=== PATIENT | male | born 1935 | race Two or more races ===

== ENCOUNTER 2020-07-13 11:08 | Inpatient (IN) | payer OTHER ==
[~2020-07-13] VITALS: Ht 182.9 cm; Wt 76.2 kg
[2020-07-13 11:08] VITALS: BP 129/84
--- NOTE | 2020-07-13 11:08 | NUR ---
EMERGENCY CONTACT: ARTEMIO LARSON-DAUGHTER
--- NOTE | 2020-07-13 11:08 | NUR ---
ED Nurse Note: Pt BIBJessica RA34 from home c/o generalized weakness x2 days. Per EMS, pt is getting confused and restless. AAOx1, verbally responsive, follows simple command. No SOB, on room air. Afebrile. Pt placed on monitoring manager. ERMD at bedside.
--- NOTE | 2020-07-13 11:25 | NUR ---
ED Nurse Note: IV line established. Blood and urine sent to lab.
[2020-07-13] MEDS ORDERED: LIPITOR80 MG ORAL (11:27)
[2020-07-13] MEDS ORDERED: ALLOPURINOL100 M1 ORAL (11:27)
[2020-07-13 11:41] LABS: BASOPHILS % (AUTO) 1.4 % (0.0-2.0); HEMATOCRIT 34.2 % (42.0-52.0); HEMOGLOBIN 11.1 G/DL (14.2-18.0); LYMPHOCYTES % (AUTO) 25.5 % (20.0-45.0); MEAN CORPUSCULAR VOLUME 86 FL (80-99); MONOCYTES % (AUTO) 10.7 % (1.0-10.0); NEUTROPHILS % (AUTO) 57.4 % (45.0-75.0); PLATELET COUNT 130 K/UL (150-450); RED BLOOD COUNT 3.98 M/UL (4.70-6.10); WHITE BLOOD COUNT 6.3 K/UL (4.8-10.8)
[2020-07-13 11:43] LABS: APPEARANCE,URINE SLIGHTLY CLOUDY; BILIRUBIN, URINE NEGATIVE (NEGATIVE); COLOR,URINE PALE YELLOW; GLUCOSE, URINE (UA) NEGATIVE (NEGATIVE); KETONES,URINE NEGATIVE (NEGATIVE); LEUKOCYTE ESTERASE ,URINE 3+ (NEGATIVE); NITRITE,URINE POSITIVE (NEGATIVE); PH,URINE 7 (4.5-8.0); PROTEIN,URINE NEGATIVE (NEGATIVE); UROBILINOGEN,URINE NORMAL MG/DL (0.0-1.0)
--- NOTE | 2020-07-13 11:43 | NUR ---
ED Nurse Note: Pt was taken to CT via regis, accompanied by a tech.
[2020-07-13 11:47] LABS: INR 1.1 (0.9-1.1)
[2020-07-13 11:55] LABS: CALCIUM 9.5 MG/DL (8.5-10.1); CREATININE 2.9 MG/DL (0.55-1.30); POTASSIUM 3.7 MMOL/L (3.5-5.1)
[2020-07-13] MEDS ORDERED: Thiamine HCl 100 MG in D5W 55 ML IVPB ONE (12:00)
[2020-07-13] MEDS ORDERED: cefTRIAXone 1 GM in NS 55 ML IVPB ONE (12:00)
--- NOTE | 2020-07-13 12:06 | Diagnostic Imaging Report ---
Indications: Altered mental status and weakness Technique: Spiral acquisitions obtained through the brain. Angled axial and coronal 5 x 5 mm slices were reconstructed. Total dose length product 1045 mGycm. CTDI vol(s) 53 mGy. Dose reduction achieved using automated exposure control Comparison: None. Findings: There is some image degradation due to motion artifact. There is age-related enlargement of the ventricles and extra-axial CSF spaces. There is considerable periventricular deep white matter low attenuation, consistent with chronic microvascular ischemic change. No acute intracranial hemorrhage or edema, mass effect, or midline shift. There is evidence of prior bilateral cataract surgery. The mastoids are clear. The sinuses are clear. The calvarium is intact. Impression: Chronic and age-related changes. Negative for acute intracranial bleed or mass effect The CT scanner at [facility] is accredited by the [employer] and the scans are performed using protocols designed to limit radiation exposure to as low as reasonably achievable to attain images of sufficient resolution adequate for diagnostic evaluation.
[2020-07-13 12:09] LABS: ALBUMIN 3.2 G/DL (3.4-5.0); ALBUMIN/GLOBULIN RATIO 0.8 (1.0-2.7); BILIRUBIN,TOTAL 0.5 MG/DL (0.2-1.0)
--- NOTE | 2020-07-13 12:20 | Emergency Room Report ---
History of Present Illness General Chief Complaint: Generalized Weakness Source: Patient, EMS Present Illness HPI Patient is an 84-year-old male who presents for increased altered mental status and generalized weakness. Onset of symptoms yesterday. History is obtained from the patient's daughter Daughter Rashmi Benites . Patient was brought in by EMS after increased generalized weakness. He is normally able to ambulate with a walker very short distances. Prior history of prostate cancer as well as Prior history of renal disease. Patient reportedly does not drink alcohol. Had no recent trauma known. Patient had been having diminished appetite. Reportedly his urine had looked discolored to his daughter who is his caregiver. Prior history of CVA. Allergies: Coded Allergies: No Known Allergies (Unverified , 07/13/20) COVID-19 Screening Contact w/high risk pt: No Experienced COVID-19 symptoms?: No COVID-19 Testing performed STONE LATHE OPERATOR: No Patient History Past Medical History: see triage record Reviewed Nursing Documentation: PMH: Agreed; PSxH: Agreed Nursing Documentation-PMH Hx Cardiac Problems: Yes Hx Hypertension: Yes Hx Neurological Problems: Yes - dementia Hx Cerebrovascular Accident: Yes Review of Systems All Other Systems: limited - Limited by poor historian Physical Exam Vital Signs Date Time Temp Pulse Resp B/P (MAP) Pulse Ox O2 Delivery O2 Flow Rate FiO2 07/13/20 11:03 97.3 95 18 129/84 (99) 99 Room Air General Appearance: Chronically Ill Head: atraumatic ENT: normal ENT inspection, hearing grossly normal, normal voice Neck: normal inspection, no bony tend, limited range of motion Respiratory: normal breath sounds, no respiratory distress, no retraction Cardiovascular #1: regular rate, rhythm, edema - Trace Gastrointestinal: normal inspection, normal bowel sounds, non tender, soft, no guarding, no hernia Genitourinary: no CVA tenderness Musculoskeletal: no lower extremity edema Neurologic: alert, motor weakness, responsive, other - Confused speech Psychiatric: normal inspection, mood/affect normal Skin: no rash Medical Decision Making Diagnostic Impression: Primary Impression: Altered mental status Additional Impressions: Urinary tract infection Encephalopathy Prostate cancer Renal insufficiency ER Course Patient presented for increased generalized weakness and confusion. Differential diagnosis include was not limited to urinary tract infection, electrolyte abnormality, CVA, intracranial hemorrhage, dehydration, among others. Because of complexity of patient's case laboratory tests and imaging studies were ordered. Patient was noted to have initial blood sugar approximately 120. He does have some prior history of previous CVA per patient's daughter. Patient does not have any known cardiac history. Patient is given IV thiamine and started on IV fluids as well as IV antibiotics. Patient had some minimal improvement in his alteration of mental status after IV hydration. Patient was given Rocephin. Apparently in the past patient has had similar episodes when he has a urinary infection. He is normally followed at the DC and the DC was contacted for possible transfer due to family member payton donaldson. They have no capacity currently for transfer. Dr. Chidi Warren was contacted for inpatient management due to panel physician and he agreed with admission. Labs Test 07/13/20 11:25 07/13/20 11:35 White Blood Count 6.3 K/UL (4.8-10.8) Red Blood Count 3.98 M/UL (4.70-6.10) Hemoglobin 11.1 G/DL (14.2-18.0) Hematocrit 34.2 % (42.0-52.0) Mean Corpuscular Volume 86 FL (80-99) Mean Corpuscular Hemoglobin 28.0 PG (27.0-31.0) Mean Corpuscular Hemoglobin Concent 32.5 G/DL (32.0-36.0) Red Cell Distribution Width 16.0 % (11.6-14.8) Platelet Count 130 K/UL (150-450) Mean Platelet Volume 9.3 FL (6.5-10.1) Neutrophils (%) (Auto) 57.4 % (45.0-75.0) Lymphocytes (%) (Auto) 25.5 % (20.0-45.0) Monocytes (%) (Auto) 10.7 % (1.0-10.0) Eosinophils (%) (Auto) 5.0 % (0.0-3.0) Basophils (%) (Auto) 1.4 % (0.0-2.0) Prothrombin Time 12.1 SEC (9.30-11.50) Prothromb Time International Ratio 1.1 (0.9-1.1) Activated Partial Thromboplast Time 25 SEC (23-33) Sodium Level 141 MMOL/L (136-145) Potassium Level 3.7 MMOL/L (3.5-5.1) Chloride Level 107 MMOL/L (98-107) Carbon Dioxide Level 27 MMOL/L (21-32) Anion Gap 7 mmol/L (5-15) Blood Urea Nitrogen 22 mg/dL (7-18) Creatinine 2.9 MG/DL (0.55-1.30) Estimat Glomerular Filtration Rate 20.8 mL/min (>60) Glucose Level 103 MG/DL (74-106) Calcium Level 9.5 MG/DL (8.5-10.1) Total Bilirubin 0.5 MG/DL (0.2-1.0) Aspartate Amino Transf (AST/SGOT) 42 U/L (15-37) Alanine Aminotransferase (ALT/SGPT) 17 U/L (12-78) Alkaline Phosphatase 106 U/L (46-116) Troponin I 0.048 ng/mL (0.000-0.056) Total Protein 7.4 G/DL (6.4-8.2) Albumin 3.2 G/DL (3.4-5.0) Globulin 4.2 g/dL Albumin/Globulin Ratio 0.8 (1.0-2.7) Thyroid Stimulating Hormone (TSH) 1.391 uiU/mL (0.358-3.740) Serum Alcohol < 3 mg/dL Urine Color Pale yellow Urine Appearance Slightly cloudy Urine pH 7 (4.5-8.0) Urine Specific [place] 1.005 (1.005-1.035) Urine Protein Negative (NEGATIVE) Urine Glucose (UA) Negative (NEGATIVE) Urine Ketones Negative (NEGATIVE) Urine Blood 2+ (NEGATIVE) Urine Nitrite Positive (NEGATIVE) Urine Bilirubin Negative (NEGATIVE) Urine Urobilinogen Normal MG/DL (0.0-1.0) Urine Leukocyte Esterase 3+ (NEGATIVE) Urine RBC 0-2 /HPF (0 - 0) Urine WBC 5-10 /HPF (0 - 0) Urine Squamous Epithelial Cells Occasional /LPF Urine Bacteria Moderate /HPF (NONE) Last Vital Signs Date Time Temp Pulse Resp B/P (MAP) Pulse Ox O2 Delivery O2 Flow Rate FiO2 07/13/20 11:08 97.3 95 18 129/84 99 Room Air Status: improved Disposition: ADMITTED INPATIENT Condition: Stable Cameron Farris MD Jul 13, 2020 12:20
--- NOTE | 2020-07-13 14:01 | NUR ---
ED Nurse Note: Xray at bedside.
[2020-07-13 14:22] VITALS: BP 142/83
--- NOTE | 2020-07-13 15:35 | NUR ---
ED Nurse Note: Pt awake, alert and oriented x1, follows simple command. No SOB, on room air. [place] provided for comfort. Urinal within reach. Will cont to monitor.
--- NOTE | 2020-07-13 16:47 | Diagnostic Imaging Report ---
Indication: Chest pain Technique: One view of the chest Comparison: none Findings: There is some atelectasis at the left lateral lung base. Lungs and pleural spaces are otherwise clear. The heart size is normal Impression: No acute process
--- NOTE | 2020-07-13 17:30 | NUR ---
ED Nurse Note: Pt seen sleeping in bed. No SOB, on room air. Safety and comfort provided. Will cont to monitor.
[2020-07-13 18:21] VITALS: BP 151/75
--- NOTE | 2020-07-13 19:04 | NUR ---
HAND-OFF: Report given to Andrew ROMAN.
--- NOTE | 2020-07-13 19:05 | NUR ---
ED Nurse Note: Recieved a pt asleep on the bed. pt has no sob, vitals are stable, afebrial and on room air. pt is waiting to get admitted.
--- NOTE | 2020-07-13 20:10 | NUR ---
TRANSFER TO FLOOR: Patient transferred to [facility] as ordered, per Dr webster . Report given to ABEL Tom. Belongings sent with the pt. LISA Chung and RN took the pt in stable condition
[2020-07-13 20:15] VITALS: BP 153/99
--- NOTE | 2020-07-13 20:15 | NUR ---
NURSE NOTES: Received pt from ED via delrney. Pt transferred to 203- without any incident. Pt is A/Ox1. [place] pt to room and unit. Received report from ABEL Morales. athletic monitor is in placed; pt is NSR. IV site intact, asymptomatic, and patent. Belongings list checked and signed. Bed is in the lowest position, locked, and alarmed. Call light and bedside table is within reach. No signs/symptoms of acute distress noted. Received admission orders from Dr. Warren. Will note and carry out.
[2020-07-13] MEDS: D5NS 1,000 ML IV SCH (20:32)
[2020-07-13] MEDS: Heparin 5000 units/ml inj SUBQ SCH (21:39)
[2020-07-14] VITALS: BP 156/97
[2020-07-14 04:00] VITALS: BP 152/93
--- NOTE | 2020-07-14 07:21 | NUR ---
NURSE HAND-OFF REPORT: Important Events on Shift: Admitted pt for AMS and UTI. Pt is A/Ox1. Patient Status: Stable Diet: Cardiac Pending Orders: N Pending Results/Labs: AM Labs Pending MD notification: N Latest Vital Signs: Temperature 97.7 , Pulse 64 , B/P 152 /93 , Respiratory Rate 16 , O2 SAT 99 , Room Air, O2 Flow Rate . EKG Rhythm: Sinus Rhythm Rhythm change?: N Latest [place] Fall Score: 50 Fall Risk: High Risk Safety Measures: Call light Within Reach, Bed Alarm Zone 1, Side Rails Side Rails x2, Bed position Low and Locked. Fall Precautions: Yellow Socks Yellow Gown Door Sign Patient Fall Education Report given to ABEL Lord.
[2020-07-14 08:00] VITALS: BP 135/81
[2020-07-14 08:06] LABS: ALBUMIN 2.8 G/DL (3.4-5.0); ALBUMIN/GLOBULIN RATIO 0.8 (1.0-2.7); BILIRUBIN,TOTAL 0.5 MG/DL (0.2-1.0); CALCIUM 8.7 MG/DL (8.5-10.1); CREATININE 2.4 MG/DL (0.55-1.30); POTASSIUM 4.4 MMOL/L (3.5-5.1)
--- NOTE | 2020-07-14 08:30 | NUR ---
NURSE NOTES: Received patient report from ABEL Tom. Patient is AOx 1 awake but does not answer questions readily. Patient shows no signs of distress or pain at the time. IV is intact and patent. There are no signs of erythema, infiltration, or bleeding. Patient is on room air and shows no signs of respiratory distress. Bed is in the lowest position, call light is within reach, side rails up x3. Will continue to monitor.
[2020-07-14] MEDS: D5NS 1,000 ML IV SCH ×2 (09:03→21:42)
[2020-07-14] MEDS: Heparin 5000 units/ml inj SUBQ SCH ×2 (09:04→20:37)
--- NOTE | 2020-07-14 10:15 | History and Physical Report ---
DATE OF ADMISSION: 07/13/2020 CHIEF COMPLAINT: Altered mental status. HISTORY OF PRESENT ILLNESS: The patient is an 84-year-old male. He has a history of hypertension, gout, prostate cancer, chronic kidney disease, presented with complaints of altered mental status. The patient is unable to provide any history. According to the patient's daughter, there have been no significant events recently. No falls. No fevers. No chills. No recent changes in medications. On evaluation in the emergency room, a head CT was negative. He appeared to have possibly UTI. He has been started on hydration and antibiotics. He has been admitted for further evaluation and care. PAST MEDICAL HISTORY: As above. PAST SURGICAL HISTORY: Unknown. CURRENT MEDICATIONS: Reconciled and reviewed. ALLERGIES: None. FAMILY HISTORY: None. SOCIAL HISTORY: There is no known history of tobacco, ethanol, or drugs. REVIEW OF SYSTEMS: From the patient is unobtainable. He is nonverbal. PHYSICAL EXAMINATION: VITAL SIGNS: Temperature 98, pulse 96, respirations 17, blood pressure . GENERAL: The patient is well-developed, no apparent distress. Awake, but poorly responsive. Does not follow commands. HEENT: Head, normocephalic, atraumatic. Sclerae anicteric. Oropharynx clear. NECK: Supple. HEART: Regular rate and rhythm. LUNGS: Clear. ABDOMEN: Soft. EXTREMITIES: Without clubbing, cyanosis, or edema. NEUROLOGIC: The patient is unable to comply with neurologic exam. LABORATORY DATA: White count 6, hemoglobin 11, platelets of 130. Sodium 141, potassium 3.7, BUN 22, creatinine 2.9. TSH was 1.3. Ammonia was 10. UA showed 5 to 10 wbc's. Urine culture grew out gram-negative rods. ASSESSMENT: This is an 84-year-old male, admitted with complaints of altered mental status, possibly secondary to UTI. PLAN: IV hydration. IV antibiotics. Follow up culture results. ID consultation. PT and OT evaluations will be obtained. Chidi Warren M.D. DR: DEVAN JOB#: [id number] CC:
[2020-07-14 12:00] VITALS: BP 142/83
[2020-07-14] MEDS: cefTRIAXone 1 GM in D5W 55 ML IVPB SCH (12:12)
[2020-07-14 16:00] VITALS: BP 148/84
--- NOTE | 2020-07-14 19:28 | NUR ---
NURSE HAND-OFF REPORT: Important Events on Shift:[NA] Patient Status: [Full code] Diet: [Cardiac Soft Easy Chew] Pending Orders: [] Pending Results/Labs:[] Pending MD notification:[] Latest Vital Signs: Temperature 98.2 , Pulse 88 , B/P 148 /84 , Respiratory Rate 20 , O2 SAT 98 , Room Air, O2 Flow Rate . Vital Sign Comment: [] EKG Rhythm: Sinus Rhythm Rhythm change?: N MD Notified?: - MD Response: Latest [place] Fall Score: 50 Fall Risk: High Risk Safety Measures: Call light Within Reach, Bed Alarm Zone 2, Side Rails Side Rails x3, Bed position Low and Locked. Fall Precautions: Yellow Socks Yellow Gown Patient Fall Education Report given to [ABEL Holbrook].
--- NOTE | 2020-07-14 19:29 | NUR ---
NURSE NOTES: Received report from ABEL Lord; pt noted laying in bed; comfortable; AOX1; room air; in no acute distress; denies any pain; With peripheral IV site noted on R upper arm 20 gauge; intact and patent; call light within reach; bed locked and in low position; side rails x 2-3; will continue to monitor.
[2020-07-14 20:00] VITALS: BP 140/94
[2020-07-15] VITALS (7 sets, daily range): BP systolic 140–155; BP diastolic 63–100
--- NOTE | 2020-07-15 07:10 | NUR ---
NURSE HAND-OFF REPORT: Important Events on Shift: N/A Patient Status: aox1, stable Diet: cardiac, soft easy to chew; 1:1 feeder Pending Orders: MRI head without contrast on 07/16 Pending Results/Labs: N Pending MD notification: N Latest Vital Signs: Temperature 98.6 , Pulse 99 , B/P 143 /100 , Respiratory Rate 16 , O2 SAT 99 , Room Air, O2 Flow Rate . Vital Sign Comment: stable EKG Rhythm: Sinus Rhythm Rhythm change?: N MD Notified?: N - MD Response: Latest [place] Fall Score: 50 Fall Risk: High Risk Safety Measures: Call light Within Reach, Bed Alarm Zone 1, Side Rails Side Rails x3, Bed position Low and Locked. Fall Precautions: Yellow Socks Yellow Gown Patient Fall Education Report given to ABEL Pettit.
--- NOTE | 2020-07-15 07:50 | NUR ---
NURSE NOTES: Received hand-off report from Sheron Segundo RN. Patient AOX1, able to state name, responsive to verbal and tactile stimuli. Breathing even and unlabored on room air. Bed alarm on, bed in lowest and locked position, call light within reach, global marketing specialist on. Yellow socks on. Bilateral extensive ecchymosis on arms noted. No other signs of bleeding at this time.
--- NOTE | 2020-07-15 09:11 | General Progress Note ---
Subjective ROS Limited/Unobtainable: No Constitutional: Reports: malaise, weakness HEENT: Reports: no symptoms Cardiovascular: Reports: no symptoms Respiratory: Reports: no symptoms Gastrointestinal/Abdominal: Reports: no symptoms Genitourinary: Reports: no symptoms Neurologic/Psychiatric: Reports: no symptoms Endocrine: Reports: no symptoms Hematologic/Lymphatic: Reports: no symptoms Allergies: Coded Allergies: No Known Allergies (Unverified , 07/13/20) All Systems: reviewed and negative except above Subjective much more alert. on iv abx and ivf. labs improving. Objective Last 24 Hour Vital Signs Date Time Temp Pulse Resp B/P (MAP) Pulse Ox O2 Delivery O2 Flow Rate FiO2 07/15/20 04:00 98.6 107 16 143/100 (114) 99 07/15/20 04:00 99 07/15/20 00:00 99.8 97 20 146/85 (105) 99 07/15/20 00:00 84 07/14/20 21:00 Room Air 07/14/20 20:00 95 07/14/20 20:00 100.0 103 20 140/94 (109) 98 07/14/20 16:00 98.2 88 20 148/84 (105) 98 07/14/20 16:00 88 07/14/20 12:00 98.8 84 20 142/83 (102) 98 07/14/20 12:00 82 Intake and Output 07/14/20 07/15/20 19:00 07:00 Intake Total 300 ml Balance 300 ml Other 300 ml # Voids 2 2 Height (Feet): 6 Height (Inches): 0.00 Weight (Pounds): 168 General Appearance: WD/WN, alert Cardiovascular: regular rhythm Respiratory/Chest: lungs clear Abdomen: normal bowel sounds, non tender, soft, no organomegaly Edema: no edema noted Leg (L), no edema noted Leg (R) Neurologic: alert, responsive Assessment/Plan Problem List: (1) Encephalopathy ICD Codes: G93.40 - Encephalopathy, unspecified SNOMED: 86369374, 278093707 (2) Urinary tract infection ICD Codes: N39.0 - Urinary tract infection, site not specified SNOMED: 76367725 (3) Renal insufficiency ICD Codes: N28.9 - Disorder of kidney and ureter, unspecified SNOMED: 637655364, 102137338 (4) Altered mental status ICD Codes: R41.82 - Altered mental status, unspecified SNOMED: 266855628, 798822616 (5) Prostate cancer ICD Codes: C61 - Malignant neoplasm of prostate SNOMED: 950645734, 880421313 Status: stable Assessment/Plan: ivf iv abx follow up cultures monitor renal fxn pt/ot Chidi Warren MD Jul 15, 2020 09:11
[2020-07-15] MEDS: Heparin 5000 units/ml inj SUBQ SCH ×2 (09:46→21:53)
[2020-07-15] MEDS: cefTRIAXone 1 GM in D5W 55 ML IVPB SCH (13:00)
[2020-07-15] MEDS: D5NS 1,000 ML IV SCH (13:01)
[2020-07-15] MEDS ORDERED: D5NS 1000ml IV ONE (14:04)
--- NOTE | 2020-07-15 18:45 | Consultation ---
DATE OF CONSULTATION: 07/15/2020 This consult is for coverage of Dr. Blackburn. PRIMARY ATTENDING PHYSICIAN: Chidi Warren M.D. REASON FOR CONSULT: UTI. HISTORY OF PRESENT ILLNESS: The patient is an 84-year-old male admitted on July 13, 2020 from home with altered mental status and generalized weakness. He has pyuria and suspected UTI. PAST MEDICAL HISTORY: Significant for prostatic cancer, hypertension, dementia, and chronic kidney disease. ALLERGIES: No known drug allergies. MEDICATIONS: Ceftriaxone, amlodipine, Protonix, heparin, Seroquel. SOCIAL HISTORY: Single. Has a daughter who is the next-of-kin. REVIEW OF SYSTEMS: Very limited. The patient is very, very slow to response. PHYSICAL EXAMINATION: VITAL SIGNS: Temperature 99, pulse is 105, blood pressure 145/91, maximum temperature was 100 last night. GENERAL APPEARANCE: No acute distress. Seems to have normal weight. HEAD AND NECK: [place] conjunctivae. HEART: Normal rate. LUNGS: Clear. ABDOMEN: Soft. GENITOURINARY: Has condom catheter. EXTREMITIES: No edema. SKIN: Has some skin bruises. LABORATORY AND DIAGNOSTIC DATA: WBC 6.3, hemoglobin 11.1, hematocrit 34.2, and platelets are 130. Sodium 143, potassium 4.4, chloride 110, bicarbonate 25, BUN 19, creatinine 2.4, glucose is 108. Albumin is 2.8. UA showed wbc's of 5-10, nitrite positive. Urine culture was positive for Providencia stuartii. COVID test was negative. Chest x-ray showed no acute process. CT scan of the head showed chronic and age-related changes. IMPRESSION: Pyuria, bacteriuria, UTI with Providencia, altered mental status, dementia, history of prostate cancer, hypertension, chronic kidney disease. RECOMMENDATIONS: Continue with ceftriaxone. At the end of my exam, I thank Dr. Warren for involving me in the care of this patient. Manuel Davis M.D. DR: SHANEL JOB#: [id number] CC:
--- NOTE | 2020-07-15 19:15 | NUR ---
NURSE HAND-OFF REPORT: Important Events on Shift: AMS, alert and oriented x1-2, responsive to verbal and tactile stimuli Patient Status: stable condition, vitals WNL, full code Diet: [] Pending Orders: [] Pending Results/Labs:[] Pending MD notification:[] Latest Vital Signs: Temperature 97.0 , Pulse 100 , B/P 151 /99 , Respiratory Rate 18 , O2 SAT 98 , Room Air, O2 Flow Rate . Vital Sign Comment: [] EKG Rhythm: Sinus Rhythm Rhythm change?: N MD Notified?: N - MD Response: Latest [place] Fall Score: 50 Fall Risk: High Risk Safety Measures: Call light Within Reach, Bed Alarm Zone 1, Side Rails Side Rails x3, Bed position Low and Locked. Fall Precautions: Yellow Socks Yellow Gown Door Sign Patient Fall Education Report given to ABEL Rodriguez.
--- NOTE | 2020-07-15 19:30 | NUR ---
NURSE NOTES: Receive a report from ABEL Jim. Round is made. Pt is awake, orientation 1-2. No acute distress noted. Denies pain. On bed boud d/t general weakness. Breathing is even and non labored. Noted intermittent cough. IV is running as ordered via right upper arm. Yellow urine is patent via condom catheter. On bed alarm. Call light within reach. Will continue to monitor.
--- NOTE | 2020-07-15 21:30 | NUR ---
NURSE NOTES: Trying to get out of bed. Given orientation and calm him down. Readjust bed and position. Will continue to monitor closely.
[2020-07-16] VITALS: BP 141/93
[2020-07-16] MEDS: D5NS 1,000 ML IV SCH (01:34)
[2020-07-16 04:00] VITALS: BP 122/77
--- NOTE | 2020-07-16 04:14 | NUR ---
NURSE NOTES: Called and left a mesage regarding patient's rhythm: ST (110-130s per truck driver's offsider). Patient asleep and not in acute distress. Awaiting call back. Will continue to monitor.
--- NOTE | 2020-07-16 04:46 | Cardiology Progress Note ---
Subjective DATE OF SERVICE: Jul 15, 2020 Remains withdrawn No SOB. Monitor: sinus with frequent sinus tachycardia Objective Last 24 Hour Vital Signs Date Time Temp Pulse Resp B/P (MAP) Pulse Ox O2 Delivery O2 Flow Rate FiO2 07/16/20 00:00 120 07/16/20 00:00 97.7 114 18 141/93 (109) 97 07/15/20 21:00 Room Air 07/15/20 20:00 111 07/15/20 20:00 98.1 117 18 144/84 (104) 98 07/15/20 18:34 100 151/99 07/15/20 16:00 98 07/15/20 16:00 97.0 100 18 151/99 (116) 98 07/15/20 12:00 84 07/15/20 12:00 98.5 99 16 155/63 (93) 99 07/15/20 09:44 105 145/91 07/15/20 09:00 99.0 101 18 140/76 (97) 98 07/15/20 09:00 Room Air 07/15/20 08:00 99.3 105 20 145/91 (109) 99 07/15/20 08:00 96 HEENT: normal ENT inspection LUNGS: diminished breath sounds CARDIAC: regular rhythm, normal S1 and S2, tachycardia ABDOMEN: normal bowel sounds, non tender, soft, no organomegaly EXTREMITIES: normal range of motion, No edema, other - Neuro: uncooperative, but moves all extremities. no asterixis Microbiology Date/Time Source Procedure Growth Status 07/13/20 12:55 Nasopharynx SARS-CoV-2 RdRp Gene Assay - Final Complete 07/13/20 11:35 Urine,Clean Catch Urine Culture - Final Providencia Stuartii Complete Assessment/Plan Assessment/Plan Toxic and metabolic encephalopathies Proteus UTI with sepsis Sinus tachycardia Hypovolemia/dehydration Hypertension/HHD with labile BP Chronic diastolic CHF Euthyroid IVF Antimicrobials Metabolic profile DVT prophyl Check venous duplex Titrate antiHTN regimen Troy Feliz MD Jul 16, 2020 04:46
--- NOTE | 2020-07-16 05:00 | NUR ---
NURSE NOTES: Pt remains asymptomatic-no SALMERON/ no dizziness, no palpitation noted. Receive new orders from Dr. Feliz. Will continue to follow up.
[2020-07-16 07:20] LABS: EOSINOPHILS % (AUTO) 4.7 % (0.0-3.0); HEMATOCRIT 32.8 % (42.0-52.0); HEMOGLOBIN 10.8 G/DL (14.2-18.0); LYMPHOCYTES % (AUTO) 28.1 % (20.0-45.0); MEAN CORPUSCULAR VOLUME 86 FL (80-99); NEUTROPHILS % (AUTO) 55.3 % (45.0-75.0); PLATELET COUNT 102 K/UL (150-450); RED BLOOD COUNT 3.81 M/UL (4.70-6.10); RED CELL DISTRIBUTION WIDTH 15.9 % (11.6-14.8); WHITE BLOOD COUNT 5.3 K/UL (4.8-10.8)
--- NOTE | 2020-07-16 07:30 | NUR ---
NURSE HAND-OFF REPORT: Important Events on Shift:ST without symptoms as 110-120 bmp. Receive new orders. Patient Status: [stable] Diet: [cardiac diet] Pending Orders: [] Pending Results/Labs:[] Pending MD notification:[] Latest Vital Signs: Temperature 98.8 , Pulse 118 , B/P 122 /77 , Respiratory Rate 18 , O2 SAT 98 , Room Air, O2 Flow Rate . Vital Sign Comment: [] EKG Rhythm: Sinus Tachycardia Rhythm change?: N MD Notified?: N - MD Response: Latest [place] Fall Score: 70 Fall Risk: High Risk Safety Measures: Call light Within Reach, Bed Alarm Zone 1, Side Rails Side Rails x3, Bed position Low and Locked. Fall Precautions: Yellow Socks Yellow Gown Door Sign Patient Fall Education Report given to ABEL Lord. Round is made. Update to Dr. Warren for pt's ST and new orders.
[2020-07-16 07:41] LABS: ALANINE AMINOTRANSFERASE 17 U/L (12-78); ALBUMIN 2.7 G/DL (3.4-5.0); ALBUMIN/GLOBULIN RATIO 0.7 (1.0-2.7); ALKALINE PHOSPHATASE 86 U/L (46-116); ANION GAP 8 mmol/L (5-15); ASPARTATE AMINO TRANSFERASE 34 U/L (15-37); BILIRUBIN,TOTAL 0.4 MG/DL (0.2-1.0); BLOOD UREA NITROGEN 10 mg/dL (7-18); CALCIUM 8.7 MG/DL (8.5-10.1); CARBON DIOXIDE 25 MMOL/L (21-32); CHLORIDE 111 MMOL/L (98-107); CHOLESTEROL 103 MG/DL (< 200); CREATININE 2.3 MG/DL (0.55-1.30); HDL CHOLESTEROL 52 MG/DL (40-60); POTASSIUM 3.5 MMOL/L (3.5-5.1); SODIUM 144 MMOL/L (136-145); TRIGLYCERIDES 61 MG/DL (30-150)
--- NOTE | 2020-07-16 07:47 | NUR ---
NURSE NOTES: Received patient report from ABEL Polo. Patient shows no signs of distress or pain at the time. Patient is AO x1 awake and able to make needs known but confused. IV is intact and patent. There are no signs of erythema, infiltration, or bleeding. Patient is on room air and shows no signs of respiratory distress at the time. Bed is in the lowest position, call light is within reach, side rails up x3. Will continue to monitor. Dr. Warren informed of tachycardia or 120s at night. No new orders given.
[2020-07-16 08:00] VITALS: BP 156/78
[2020-07-16 08:06] LABS: CREATINE KINASE 186 U/L (26-308)
--- NOTE | 2020-07-16 08:20 | NUR ---
CASE MANAGEMENT:REVIEW BIBA FROM HOME CC: WEAKNESS X2 DAYS. CONFUSED AND RESTLESSNESS NOTED IN ER PMH: PROSTATE CA SI: ENCEPHALOPATHY.UTI. RENAL INSUFF 97.4 95 18 129/84 99% ON RA BUN+22 CR+2.9 IS: IV ROCEPHIN 500CC NS BOLUS CT HEAD IV THIAMINE : TO TELEMETRY DCP: FROM HOME NO AVAILABLE BEDS AT [facility]
[2020-07-16] MEDS: Heparin 5000 units/ml inj SUBQ SCH ×2 (08:38→20:25)
--- NOTE | 2020-07-16 10:15 | NUR ---
NURSE NOTES: Dr. Warren gave order to cancel MRI of brain.
--- NOTE | 2020-07-16 11:39 | Infectious Diseases Prog Note ---
Assessment/Plan Assessment/Plan antibiotics : ceftriaxone A 1. providencia UTI 2. renal failure improving 3. hypertension 4. prostate cancer 5. dementia P 1. continue ceftriaxone 3 more days 2. will follow up cultures Subjective ROS Limited/Unobtainable: Yes Allergies: Coded Allergies: No Known Allergies (Unverified , 07/13/20) Objective Last 24 Hour Vital Signs Date Time Temp Pulse Resp B/P (MAP) Pulse Ox O2 Delivery O2 Flow Rate FiO2 07/16/20 09:00 Room Air 07/16/20 08:38 113 156/78 07/16/20 08:37 113 156/78 07/16/20 08:00 97.9 113 20 156/78 (104) 96 07/16/20 04:00 118 07/16/20 04:00 98.8 117 18 122/77 (92) 98 07/16/20 00:00 120 07/16/20 00:00 97.7 114 18 141/93 (109) 97 07/15/20 21:00 Room Air 07/15/20 20:00 111 07/15/20 20:00 98.1 117 18 144/84 (104) 98 07/15/20 18:34 100 151/99 07/15/20 16:00 98 07/15/20 16:00 97.0 100 18 151/99 (116) 98 07/15/20 12:00 84 07/15/20 12:00 98.5 99 16 155/63 (93) 99 Height (Feet): 6 Height (Inches): 0.00 Weight (Pounds): 168 Respiratory/Chest: lungs clear Cardiovascular: normal rate, regular rhythm, no gallop/murmur Abdomen: soft, non tender Extremities: no edema Microbiology Date/Time Source Procedure Growth Status 07/13/20 12:55 Nasopharynx SARS-CoV-2 RdRp Gene Assay - Final Complete Laboratory Tests Test 07/16/20 05:35 White Blood Count 5.3 K/UL (4.8-10.8) Red Blood Count 3.81 M/UL (4.70-6.10) L Hemoglobin 10.8 G/DL (14.2-18.0) L Hematocrit 32.8 % (42.0-52.0) L Mean Corpuscular Volume 86 FL (80-99) Mean Corpuscular Hemoglobin 28.4 PG (27.0-31.0) Mean Corpuscular Hemoglobin Concent 32.9 G/DL (32.0-36.0) Red Cell Distribution Width 15.9 % (11.6-14.8) H Platelet Count 102 K/UL (150-450) L Mean Platelet Volume 9.3 FL (6.5-10.1) Neutrophils (%) (Auto) 55.3 % (45.0-75.0) Lymphocytes (%) (Auto) 28.1 % (20.0-45.0) Monocytes (%) (Auto) 11.0 % (1.0-10.0) H Eosinophils (%) (Auto) 4.7 % (0.0-3.0) H Basophils (%) (Auto) 1.0 % (0.0-2.0) Sodium Level 144 MMOL/L (136-145) Potassium Level 3.5 MMOL/L (3.5-5.1) Chloride Level 111 MMOL/L (98-107) H Carbon Dioxide Level 25 MMOL/L (21-32) Anion Gap 8 mmol/L (5-15) Blood Urea Nitrogen 10 mg/dL (7-18) Creatinine 2.3 MG/DL (0.55-1.30) H Estimat Glomerular Filtration Rate 27.2 mL/min (>60) Glucose Level 125 MG/DL (74-106) H Uric Acid 6.0 MG/DL (2.6-7.2) Calcium Level 8.7 MG/DL (8.5-10.1) Magnesium Level 1.6 MG/DL (1.8-2.4) L Total Bilirubin 0.4 MG/DL (0.2-1.0) Aspartate Amino Transf (AST/SGOT) 34 U/L (15-37) Alanine Aminotransferase (ALT/SGPT) 17 U/L (12-78) Alkaline Phosphatase 86 U/L (46-116) Total Creatine Kinase 186 U/L (26-308) Troponin I 0.073 ng/mL (0.000-0.056) Pro-B-Type Natriuretic Peptide Pending Total Protein 6.5 G/DL (6.4-8.2) Albumin 2.7 G/DL (3.4-5.0) L Globulin 3.8 g/dL Albumin/Globulin Ratio 0.7 (1.0-2.7) L Triglycerides Level 61 MG/DL (30-150) Cholesterol Level 103 MG/DL (< 200) LDL Cholesterol 41 mg/dL (<100) HDL Cholesterol 52 MG/DL (40-60) Cholesterol/HDL Ratio 2.0 (3.3-4.4) L Vitamin B12 Level 935 PG/ML (193-986) Folate 16.2 NG/ML (8.6-58.9) Current Medications Medications (Trade) Dose Ordered Sig/Kaylin Route PRN Reason Start Time Stop Time Status Last Admin Dose Admin Amlodipine Besylate (Norvasc) 5 mg BID ORAL 07/15/20 10:00 08/14/20 09:59 07/16/20 08:37 Ceftriaxone Sodium 1 gm/ Dextrose 55 ml @ 110 mls/hr Q24H IVPB 07/14/20 12:00 07/21/20 11:59 07/15/20 13:00 Dextrose/Sodium Chloride 1,000 ml @ 75 mls/hr [id number] IV 07/13/20 20:00 08/12/20 19:59 07/16/20 01:34 Heparin Sodium (Porcine) (Heparin 5000 units/ml) 5,000 units EVERY 12 HOURS SUBQ 07/13/20 21:00 08/27/20 20:59 07/15/20 21:53 Metoprolol Tartrate (Lopressor) 25 mg Q12HR ORAL 07/16/20 09:00 10/14/20 08:59 07/16/20 08:38 Pantoprazole (Protonix) 40 mg DAILY ORAL 07/14/20 09:00 08/13/20 08:59 07/16/20 08:37 Quetiapine Fumarate (SEROqueL) 25 mg TIDPRN PRN ORAL Agitation 07/13/20 19:45 08/27/20 19:44 Caity Blackburn MD Jul 16, 2020 11:39
[2020-07-16 12:00] VITALS: BP 144/73
--- NOTE | 2020-07-16 12:19 | General Progress Note ---
Subjective ROS Limited/Unobtainable: No Constitutional: Reports: malaise, weakness HEENT: Reports: no symptoms Cardiovascular: Reports: no symptoms Respiratory: Reports: no symptoms Gastrointestinal/Abdominal: Reports: no symptoms Genitourinary: Reports: no symptoms Neurologic/Psychiatric: Reports: pre-existing deficit Endocrine: Reports: no symptoms Hematologic/Lymphatic: Reports: no symptoms Allergies: Coded Allergies: No Known Allergies (Unverified , 07/13/20) All Systems: reviewed and negative except above Subjective much more alert. on iv abx and ivf. labs improving. ID appreciated Objective Last 24 Hour Vital Signs Date Time Temp Pulse Resp B/P (MAP) Pulse Ox O2 Delivery O2 Flow Rate FiO2 07/16/20 09:00 Room Air 07/16/20 08:38 113 156/78 07/16/20 08:37 113 156/78 07/16/20 08:00 97.9 113 20 156/78 (104) 96 07/16/20 04:00 118 07/16/20 04:00 98.8 117 18 122/77 (92) 98 07/16/20 00:00 120 07/16/20 00:00 97.7 114 18 141/93 (109) 97 07/15/20 21:00 Room Air 07/15/20 20:00 111 07/15/20 20:00 98.1 117 18 144/84 (104) 98 07/15/20 18:34 100 151/99 07/15/20 16:00 98 07/15/20 16:00 97.0 100 18 151/99 (116) 98 Intake and Output 07/15/20 07/16/20 19:00 07:00 Intake Total 300 ml 250 ml Output Total 700 ml Balance 300 ml -450 ml Intake Oral 300 ml 250 ml Output Urine Total 700 ml Laboratory Tests 07/16/20 05:35: White Blood Count 5.3, Red Blood Count 3.81L, Hemoglobin 10.8L, Hematocrit 32.8L , Mean Corpuscular Volume 86, Mean Corpuscular Hemoglobin 28.4, Mean Corpuscular Hemoglobin Concent 32.9, Red Cell Distribution Width 15.9H, Platelet Count 102L, Mean Platelet Volume 9.3, Neutrophils (%) (Auto) 55.3, Lymphocytes (%) (Auto) 28.1, Monocytes (%) (Auto) 11.0H, Eosinophils (%) (Auto) 4.7H, Basophils (%) (Auto) 1.0, Sodium Level 144, Potassium Level 3.5, Chloride Level 111H, Carbon Dioxide Level 25, Anion Gap 8, Blood Urea Nitrogen 10, Creatinine 2.3H, Estimat Glomerular Filtration Rate 27.2, Glucose Level 125H, Uric Acid 6.0, Calcium Level 8.7, Magnesium Level 1.6L, Total Bilirubin 0.4, Aspartate Amino Transf (AST/SGOT) 34, Alanine Aminotransferase (ALT/SGPT) 17, Alkaline Phosphatase 86, Total Creatine Kinase 186, Troponin I 0.073H, Pro-B-Type Natriuretic Peptide [Pending], Total Protein 6.5, Albumin 2.7L, Globulin 3.8, Albumin/Globulin Ratio 0.7L, Triglycerides Level 61, Cholesterol Level 103, LDL Cholesterol 41, HDL C holesterol 52, Cholesterol/HDL Ratio 2.0L, Vitamin B12 Level 935, Folate 16.2 Height (Feet): 6 Height (Inches): 0.00 Weight (Pounds): 168 General Appearance: WD/WN, alert, confused Neck: supple Cardiovascular: regular rhythm Respiratory/Chest: normal breath sounds Abdomen: normal bowel sounds, non tender, soft, no organomegaly 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, alert, responsive Assessment/Plan Problem List: (1) Encephalopathy ICD Codes: G93.40 - Encephalopathy, unspecified SNOMED: 92764842, 574586285 (2) Urinary tract infection ICD Codes: N39.0 - Urinary tract infection, site not specified SNOMED: 79432813 (3) Renal insufficiency ICD Codes: N28.9 - Disorder of kidney and ureter, unspecified SNOMED: 109540190, 110307108 (4) Altered mental status ICD Codes: R41.82 - Altered mental status, unspecified SNOMED: 181370289, 952506706 (5) Prostate cancer ICD Codes: C61 - Malignant neoplasm of prostate SNOMED: 660351982, 938687958 Status: stable Assessment/Plan: ivf as needed iv abx follow up cultures monitor renal fxn pt/ot eval dc planning Chidi Warren MD Jul 16, 2020 12:19
[2020-07-16] MEDS: cefTRIAXone 1 GM in D5W 55 ML IVPB SCH (12:22)
--- NOTE | 2020-07-16 12:52 | Cardiology Progress Note ---
Subjective DATE OF SERVICE: Jul 16, 2020 More alert No SOB. Monitor: sinus with frequent sinus tachycardia Objective Last 24 Hour Vital Signs Date Time Temp Pulse Resp B/P (MAP) Pulse Ox O2 Delivery O2 Flow Rate FiO2 07/16/20 09:00 Room Air 07/16/20 08:38 113 156/78 07/16/20 08:37 113 156/78 07/16/20 08:00 97.9 113 20 156/78 (104) 96 07/16/20 04:00 118 07/16/20 04:00 98.8 117 18 122/77 (92) 98 07/16/20 00:00 120 07/16/20 00:00 97.7 114 18 141/93 (109) 97 07/15/20 21:00 Room Air 07/15/20 20:00 111 07/15/20 20:00 98.1 117 18 144/84 (104) 98 07/15/20 18:34 100 151/99 07/15/20 16:00 98 07/15/20 16:00 97.0 100 18 151/99 (116) 98 HEENT: normal ENT inspection LUNGS: diminished breath sounds CARDIAC: regular rhythm, normal S1 and S2, tachycardia ABDOMEN: normal bowel sounds, non tender, soft, no organomegaly EXTREMITIES: normal range of motion, No edema, other - Neuro: uncooperative, but moves all extremities. no asterixis Laboratory Tests Test 07/16/20 05:35 White Blood Count 5.3 K/UL (4.8-10.8) Red Blood Count 3.81 M/UL (4.70-6.10) L Hemoglobin 10.8 G/DL (14.2-18.0) L Hematocrit 32.8 % (42.0-52.0) L Mean Corpuscular Volume 86 FL (80-99) Mean Corpuscular Hemoglobin 28.4 PG (27.0-31.0) Mean Corpuscular Hemoglobin Concent 32.9 G/DL (32.0-36.0) Red Cell Distribution Width 15.9 % (11.6-14.8) H Platelet Count 102 K/UL (150-450) L Mean Platelet Volume 9.3 FL (6.5-10.1) Neutrophils (%) (Auto) 55.3 % (45.0-75.0) Lymphocytes (%) (Auto) 28.1 % (20.0-45.0) Monocytes (%) (Auto) 11.0 % (1.0-10.0) H Eosinophils (%) (Auto) 4.7 % (0.0-3.0) H Basophils (%) (Auto) 1.0 % (0.0-2.0) Sodium Level 144 MMOL/L (136-145) Potassium Level 3.5 MMOL/L (3.5-5.1) Chloride Level 111 MMOL/L (98-107) H Carbon Dioxide Level 25 MMOL/L (21-32) Anion Gap 8 mmol/L (5-15) Blood Urea Nitrogen 10 mg/dL (7-18) Creatinine 2.3 MG/DL (0.55-1.30) H Estimat Glomerular Filtration Rate 27.2 mL/min (>60) Glucose Level 125 MG/DL (74-106) H Uric Acid 6.0 MG/DL (2.6-7.2) Calcium Level 8.7 MG/DL (8.5-10.1) Magnesium Level 1.6 MG/DL (1.8-2.4) L Total Bilirubin 0.4 MG/DL (0.2-1.0) Aspartate Amino Transf (AST/SGOT) 34 U/L (15-37) Alanine Aminotransferase (ALT/SGPT) 17 U/L (12-78) Alkaline Phosphatase 86 U/L (46-116) Total Creatine Kinase 186 U/L (26-308) Troponin I 0.073 ng/mL (0.000-0.056) Pro-B-Type Natriuretic Peptide Pending Total Protein 6.5 G/DL (6.4-8.2) Albumin 2.7 G/DL (3.4-5.0) L Globulin 3.8 g/dL Albumin/Globulin Ratio 0.7 (1.0-2.7) L Triglycerides Level 61 MG/DL (30-150) Cholesterol Level 103 MG/DL (< 200) LDL Cholesterol 41 mg/dL (<100) HDL Cholesterol 52 MG/DL (40-60) Cholesterol/HDL Ratio 2.0 (3.3-4.4) L Vitamin B12 Level 935 PG/ML (193-986) Folate 16.2 NG/ML (8.6-58.9) Microbiology Date/Time Source Procedure Growth Status 07/13/20 12:55 Nasopharynx SARS-CoV-2 RdRp Gene Assay - Final Complete Assessment/Plan Assessment/Plan Toxic and metabolic encephalopathies Proteus UTI with sepsis Sinus tachycardia Hypovolemia/dehydration Hypertension/HHD with labile BP Chronic diastolic CHF Euthyroid Acute myocardial ischemia Low range lipid parameters on high dose statin as outpatient IVF adjusted Antimicrobials Metabolic profile DVT prophyl Await venous duplex Titrate antiHTN regimen Resume low dose statin upon discharge Continue beta nikkie and aspirin Troy Feliz MD Jul 16, 2020 12:52
--- NOTE | 2020-07-16 13:33 | Diagnostic Imaging Report ---
Indication: Bilateral lower extremity pain and edema Technique: Grayscale and duplex images of the bilateral lower extremity veins Comparison: None Findings: Bilaterally, grayscale and duplex images demonstrate no evidence of intraluminal thrombus. Normal phasic Doppler waveforms, demonstrating normal augmentation response and no evidence of valvular insufficiency. Greater saphenous vein(s) and tibial veins are patent. Normal compressibility. Impression: Negative for evidence of lower extremity deep venous thrombosis bilaterally
--- NOTE | 2020-07-16 13:47 | NUR ---
P.T Note: P.T evaluation completed and tx initiated. Please refer to P.T evaluation for full report.
--- NOTE | 2020-07-16 13:48 | NUR ---
TRANSFER UPDATE PATIENT IS 100% [facility] SPOKE WITH PATIENT'S DAUGHTER , ATREMIO, WHO STATED SHE WANTED HER FATHER TRANSFERRED. SHE ALSO MENTIONED THEY TRIED TO TRANSFER FROM THE ER BUT THERE WEREN'T ANY [facility] BEDS AVAILABLE AT THAT TIME.. SPOKE WITH ANGELICA AT [facility]...SHE IS WORKING ON A BED ANGELICA T: [phone] [id number] EFAX: [phone]
[2020-07-16] MEDS: 1/2NS w/KCl 20mEq 1000ml 1,000 ML IV SCH (13:55)
--- NOTE | 2020-07-16 13:58 | NUR ---
INSURANCE ALL CLINICALS FA[facility] TO [facility] [phone]
--- NOTE | 2020-07-16 15:30 | Consultation ---
DATE OF CONSULTATION: 07/14/2020 CARDIOLOGY CONSULTATION CONSULTING PHYSICIAN: Troy Feliz MD REASON FOR CONSULTATION: Altered mentation with elevated cardiac enzymes. HISTORY OF PRESENT ILLNESS: This 84-year-old male with multiple medical problems presented to the emergency room with altered mentation according to his daughter. He has been withdrawn and lethargic and eating poorly. He has not had any fevers, chills, or any respiratory symptoms. He has not had any nausea, vomiting, or diarrhea either. PAST MEDICAL HISTORY: Includes hyperlipidemia, hyperuricemia, history of gout, hypertension, history of prostate cancer, chronic kidney disease, cerebrovascular disease, history of CVA. ALLERGIES: None. MEDICATIONS: Reviewed. FAMILY HISTORY: Noncontributory. SOCIAL HISTORY: No history of smoking, alcohol, or substance abuse. REVIEW OF SYSTEMS: Not obtainable from patient. Pertinent data available as noted above from daughter's report. PHYSICAL EXAMINATION: VITAL SIGNS: In the emergency room afebrile, blood pressure 129/84, heart rate 95, respirations 18, oxygen saturation on room air 99%. HEENT: Conjunctivae pink. Oropharynx clear with dry mucous membranes. NECK: Supple. Jugular venous pressure normal. LUNGS: Diminished breath sounds. No wheezes or rales. ABDOMEN: Soft, nontender. No guarding or rebound. No CVA tenderness. CARDIAC: Regular rhythm and rate. Normal S1, S2 with a fourth heart sound. A 1/6 systolic murmur at base. EXTREMITIES: No clubbing, cyanosis. Decreased capillary refill. No edema. NEUROLOGIC: Confusion with decreased cognition. He moves all extremities. LABORATORY DATA: White count 6.3, hemoglobin 11.1. BUN 22, creatinine 2.9, potassium 3.7, sodium 141, bicarb is 27. TSH 1.4. Urinalysis with 5 to 10 white cells and moderate bacteria. Troponin is 0.048. IMPRESSION: 1. Encephalopathy, likely toxic and metabolic. 2. Urinary tract infection with possible early sepsis. 3. Paroxysmal sinus tachycardia. 4. History of hypertension. 5. Hypovolemia and dehydration. PLAN: 1. Antimicrobials per primary care physician. 2. IV fluid hydration. 3. DVT prophylaxis. 4. Hold antihypertensives. 5. Hold statin drugs. 6. Follow up cardiac enzymes. 7. Continuous cardiac monitoring. Troy Joyce Feliz DR: SON JOB#: [id number] CC:
[2020-07-16 16:00] VITALS: BP 143/88
--- NOTE | 2020-07-16 19:34 | NUR ---
NURSE HAND-OFF REPORT: Important Events on Shift:[Patient removed IV. ] Patient Status: [Full code] Diet: [Cardiac] Pending Orders: [] Pending Results/Labs:[] Pending MD notification:[] Latest Vital Signs: Temperature 97.9 , Pulse 98 , B/P 143 /88 , Respiratory Rate 20 , O2 SAT 98 , Room Air, O2 Flow Rate . Vital Sign Comment: [] EKG Rhythm: Sinus Rhythm Rhythm change?: N MD Notified?: N - MD Response: Latest Carlisle Fall Score: 70 Fall Risk: High Risk Safety Measures: Call light Within Reach, Bed Alarm Zone 1, Side Rails Side Rails x3, Bed position Low and Locked. Fall Precautions: Yellow Socks Yellow Gown Door Sign Patient Fall Education Report given to [ABEL Williamson].
--- NOTE | 2020-07-16 19:39 | NUR ---
NURSE NOTES: Pt received from ABEL Lord alert and oriented x1 to name only with no acute s/s of distress noted. On room air. No IV noted on patient, per AM nurse pt pulled out IV, will attempt to insert new IV. Bed alarm on, bed in lowest position. Fall precautions educated to patient, pt requires further education and teaching as patient is confused. Call light within reach.
[2020-07-16 20:00] VITALS: BP 146/81
[2020-07-17] VITALS: BP 142/84
[2020-07-17] MEDS: 1/2NS w/KCl 20mEq 1000ml 1,000 ML IV SCH (03:20)
--- NOTE | 2020-07-17 03:45 | NUR ---
NURSE NOTES: RN and staff have been unable to insert IV line for pt d/t pt being a hard stick. Will continue to attempt to insert new IV.
[2020-07-17 04:00] VITALS: BP 143/86
--- NOTE | 2020-07-17 06:20 | NUR ---
NURSE NOTES: RN reported to Dr. Warren that staff have been unable to insert new IV for patient. Per Dr. Warren, "discontinue maintenance IV fluids - 1/2 NS with 20 KCl at 75 and change Rocephin 1gm to IM to continue antibiotic therapy" Will follow through with orders accordingly.
--- NOTE | 2020-07-17 07:39 | NUR ---
NURSE HAND-OFF REPORT: Important Events on Shift: Pt pulled out IV line in the previous shift, unable to insert new IV line d/t patient being a hard stick. Rocephin IVPB changed to IM, IVF discontinued. Patient Status: Ongoing Diet: Cardiac, SEC Pending Orders: n/a Pending Results/Labs: n/a Pending MD notification: n/a Latest Vital Signs: Temperature 97.9 , Pulse 67 , B/P 143 /86 , Respiratory Rate 20 , O2 SAT 98 , Room Air, O2 Flow Rate . Vital Sign Comment: WNL EKG Rhythm: Sinus Rhythm Rhythm change?: N MD Notified?: N - MD Response: Latest Carlisle Fall Score: 70 Fall Risk: High Risk Safety Measures: Call light Within Reach, Bed Alarm Zone 1, Side Rails Side Rails x3, Bed position Low and Locked. Fall Precautions: Yes Yellow Socks Yellow Gown Door Sign Patient Fall Education Report given to ABEL Velazquez.
--- NOTE | 2020-07-17 07:40 | NUR ---
NURSE NOTES: pt. is in bed and asleep. pt is on school lunch monitor showing no signs of cardiac or respiratory distress. bed is locked and in lowest position, call light is within reach.
[2020-07-17 08:00] VITALS: BP_SYST 129; BP_SYST 136; BP_DIAS 69; BP_DIAS 84
--- NOTE | 2020-07-17 09:04 | General Progress Note ---
Subjective ROS Limited/Unobtainable: No Constitutional: Reports: malaise, weakness HEENT: Reports: no symptoms Cardiovascular: Reports: no symptoms Respiratory: Reports: no symptoms Gastrointestinal/Abdominal: Reports: no symptoms Genitourinary: Reports: no symptoms Neurologic/Psychiatric: Reports: no symptoms Endocrine: Reports: no symptoms Hematologic/Lymphatic: Reports: no symptoms Allergies: Coded Allergies: No Known Allergies (Unverified , 07/13/20) All Systems: reviewed and negative except above Subjective much more alert. pulled out iv. refusing re-insertion. on im rocephin. Objective Last 24 Hour Vital Signs Date Time Temp Pulse Resp B/P (MAP) Pulse Ox O2 Delivery O2 Flow Rate FiO2 07/17/20 04:00 67 07/17/20 04:00 97.9 99 20 143/86 (105) 98 07/17/20 00:00 107 07/17/20 00:00 97.8 102 20 142/84 (103) 99 07/16/20 21:00 Room Air 07/16/20 21:00 Room Air 07/16/20 20:23 110 146/81 07/16/20 20:00 105 07/16/20 20:00 97.9 110 20 146/81 (102) 99 07/16/20 18:39 98 143/88 07/16/20 16:00 94 07/16/20 16:00 97.9 98 20 143/88 (106) 98 07/16/20 12:00 87 07/16/20 12:00 98.1 75 18 144/73 (96) 97 Intake and Output 07/16/20 07/17/20 19:00 07:00 Intake Total 831.25 ml 240 ml Balance 831.25 ml 240 ml Intake Oral 300 ml 240 ml IV Total 531.25 ml # Voids 1 3 Height (Feet): 6 Height (Inches): 0.00 Weight (Pounds): 168 General Appearance: WD/WN, alert Neck: supple Cardiovascular: regular rhythm Respiratory/Chest: lungs clear Abdomen: normal bowel sounds, non tender, soft, no organomegaly Edema: no edema noted Leg (L), no edema noted Leg (R) 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, alert Assessment/Plan Problem List: (1) Encephalopathy ICD Codes: G93.40 - Encephalopathy, unspecified SNOMED: 36436106, 884545574 (2) Urinary tract infection ICD Codes: N39.0 - Urinary tract infection, site not specified SNOMED: 89136252 (3) Renal insufficiency ICD Codes: N28.9 - Disorder of kidney and ureter, unspecified SNOMED: 674679565, 329922859 (4) Altered mental status ICD Codes: R41.82 - Altered mental status, unspecified SNOMED: 308006851, 269670633 (5) Prostate cancer ICD Codes: C61 - Malignant neoplasm of prostate SNOMED: 398298021, 614476853 Status: stable Assessment/Plan: pt/ot IM rocephin for uti dc planning pending formal therapy recs- ?snf vs home with home health stable for dc Chidi Warren MD Jul 17, 2020 09:04
--- NOTE | 2020-07-17 10:07 | Infectious Diseases Prog Note ---
Assessment/Plan Assessment/Plan A 1. Providencia UTI 2. Renal failure improving 3. Hypertension 4. Prostate cancer 5. Dementia P 1. Discontinue IM ceftriaxone 2. PO Levaquin 750mg X 1 Subjective ROS Limited/Unobtainable: Yes Constitutional: Denies: fever Allergies: Coded Allergies: No Known Allergies (Unverified , 07/13/20) Objective Last 24 Hour Vital Signs Date Time Temp Pulse Resp B/P (MAP) Pulse Ox O2 Delivery O2 Flow Rate FiO2 07/17/20 09:44 100 136/84 07/17/20 09:44 100 136/84 07/17/20 08:00 98.1 100 20 136/84 (101) 98 07/17/20 04:00 67 07/17/20 04:00 97.9 99 20 143/86 (105) 98 07/17/20 00:00 107 07/17/20 00:00 97.8 102 20 142/84 (103) 99 07/16/20 21:00 Room Air 07/16/20 21:00 Room Air 07/16/20 20:23 110 146/81 07/16/20 20:00 105 07/16/20 20:00 97.9 110 20 146/81 (102) 99 07/16/20 18:39 98 143/88 07/16/20 16:00 94 07/16/20 16:00 97.9 98 20 143/88 (106) 98 07/16/20 12:00 87 07/16/20 12:00 98.1 75 18 144/73 (96) 97 Height (Feet): 6 Height (Inches): 0.00 Weight (Pounds): 168 General Appearance: no acute distress HEENT: mucous membranes moist Respiratory/Chest: lungs clear Cardiovascular: tachycardia Abdomen: soft, non tender Extremities: no edema Neurologic/Psychiatric: other - sleeping Current Medications Medications (Trade) Dose Ordered Sig/Kaylin Route PRN Reason Start Time Stop Time Status Last Admin Dose Admin Amlodipine Besylate (Norvasc) 5 mg BID ORAL 07/15/20 10:00 08/14/20 09:59 07/17/20 09:44 Ceftriaxone Sodium (Rocephin) 1 gm DAILY IM 07/17/20 12:00 07/21/20 11:59 Heparin Sodium (Porcine) (Heparin 5000 units/ml) 5,000 units EVERY 12 HOURS SUBQ 07/13/20 21:00 08/27/20 20:59 07/16/20 20:25 Metoprolol Tartrate (Lopressor) 25 mg Q12HR ORAL 07/16/20 09:00 10/14/20 08:59 07/17/20 09:44 Pantoprazole (Protonix) 40 mg DAILY ORAL 07/14/20 09:00 08/13/20 08:59 07/17/20 09:44 Manuel Davis MD Jul 17, 2020 10:07
[2020-07-17] MEDS ORDERED: Levofloxacin 750mg tab ORAL SCH (10:15)
[2020-07-17] MEDS: Heparin 5000 units/ml inj SUBQ SCH ×2 (10:45→21:14)
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
[2020-07-17 12:00] VITALS: BP 121/79
[2020-07-17 16:00] VITALS: BP 102/67
[2020-07-17] MEDS ORDERED: D5NS 1000ml IV ONE (16:39)
--- NOTE | 2020-07-17 19:40 | NUR ---
NURSE HAND-OFF REPORT: Important Events on Shift:[] [facility] Patient Status: [] full code Diet: [] cardiac diet (soft easy) Pending Orders: [] Pending Results/Labs:[] Pending MD notification:[] Latest Vital Signs: Temperature 96.6 , Pulse 87 , B/P 82 /49 , Respiratory Rate 19 , O2 SAT 98 , Room Air, O2 Flow Rate . Vital Sign Comment: [] EKG Rhythm: SR w BBB Rhythm change?: N MD Notified?: N - MD Response: Latest Carlisle Fall Score: 70 Fall Risk: High Risk Safety Measures: Call light Within Reach, Bed Alarm Zone 1, Side Rails Side Rails x3, Bed position Low and Locked. Fall Precautions: Yellow Socks Yellow Gown Door Sign Patient Fall Education Report given to []Melissa ROMAN
--- NOTE | 2020-07-17 19:49 | NUR ---
NURSE NOTES: The patient is alert and oriented x1 seem to have some level of confusion and agitations but a calm environment was provided as indicated. The patient is room air with Resp even and unlabored and does not appear to be in any active distress at this time. The patient doesn't have an IV line and he refused IV insertion and MD is aware of it.The bed in low and locked level,call light within easy reach and siderails up x2. will continue to monitor as indicated.
[2020-07-17 20:00] VITALS: BP 129/72
[2020-07-18] VITALS: BP 122/58
--- NOTE | 2020-07-18 01:26 | Cardiology Progress Note ---
Subjective DATE OF SERVICE: Jul 18, 2020 More alert No SOB. Episode of hypotension; resolved spontaneously Monitor: sinus with frequent sinus tachycardia Venous Duplex: negative for DVT Objective Last 24 Hour Vital Signs Date Time Temp Pulse Resp B/P (MAP) Pulse Ox O2 Delivery O2 Flow Rate FiO2 07/18/20 00:00 99.1 67 20 122/58 (79) 99 07/17/20 21:13 77 129/72 07/17/20 21:00 Room Air 07/17/20 20:00 98.3 94 20 129/72 (91) 97 07/17/20 20:00 77 07/17/20 18:00 87 82/49 07/17/20 16:00 79 07/17/20 16:00 96.6 19 102/67 (79) 98 07/17/20 12:00 50 07/17/20 12:00 98.2 95 22 121/79 (93) 95 07/17/20 09:44 100 136/84 07/17/20 09:44 100 136/84 07/17/20 09:00 76 07/17/20 09:00 Room Air 07/17/20 08:00 98.1 100 20 136/84 (101) 98 07/17/20 04:00 67 07/17/20 04:00 97.9 99 20 143/86 (105) 98 ROS: unchanged from my initial evaluation HEENT: normal ENT inspection LUNGS: diminished breath sounds CARDIAC: regular rhythm, normal S1 and S2, tachycardia ABDOMEN: normal bowel sounds, non tender, soft, no organomegaly EXTREMITIES: normal range of motion, No edema, other - Neuro: uncooperative, but moves all extremities. 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
[2020-07-18 04:00] VITALS: BP 141/61
--- NOTE | 2020-07-18 04:10 | NUR ---
NURSE NOTES: The patient is alert and stable all night long and doesn't appear to be in any distress.The respiration is even and unlabored. He was help with turning and repositioning q 2 hrs as indicated. The is no evidence of SOB or acute distress noted at this time. Will continue to monitor as indicated.
[2020-07-18 04:30] LABS: BASOPHILS % (AUTO) 0.9 % (0.0-2.0); EOSINOPHILS % (AUTO) 6.6 % (0.0-3.0); HEMATOCRIT 30.1 % (42.0-52.0); HEMOGLOBIN 10.2 G/DL (14.2-18.0); LYMPHOCYTES % (AUTO) 29.5 % (20.0-45.0); MEAN CORPUSCULAR VOLUME 83 FL (80-99); MONOCYTES % (AUTO) 9.7 % (1.0-10.0); NEUTROPHILS % (AUTO) 53.3 % (45.0-75.0); PLATELET COUNT 120 K/UL (150-450); RED BLOOD COUNT 3.64 M/UL (4.70-6.10); RED CELL DISTRIBUTION WIDTH 16.4 % (11.6-14.8); WHITE BLOOD COUNT 5.5 K/UL (4.8-10.8)
[2020-07-18 04:50] LABS: ALBUMIN 2.6 G/DL (3.4-5.0); ALBUMIN/GLOBULIN RATIO 0.6 (1.0-2.7); BILIRUBIN,TOTAL 0.5 MG/DL (0.2-1.0); CALCIUM 8.9 MG/DL (8.5-10.1); CREATININE 2.6 MG/DL (0.55-1.30); POTASSIUM 3.8 MMOL/L (3.5-5.1)
--- NOTE | 2020-07-18 06:30 | NUR ---
NURSE NOTES: The Patient was transferred to [facility] report given to Garett ROMAN.Patient is alert and oriented x2 with mild level of anxiety noted.He doesn't seem to be in any active distress at this time.The Resp is even and unlabored and the is no evidence of SOB or acute distress noted at this time. Cardiac woodard the patient is SR with BBB all night long. He has no IV access, noted by .
--- NOTE | 2020-07-18 06:45 | NUR ---
NURSE NOTES: Handoff received from Isael ROMAN. Patient is awake and confused, no acute signs of distress noted. Breathing is even and unlabored on room air. No IV access noted, MD is aware. Bruising noted on bilateral upp extremities. Belongings list verified and signed. bed is low and locked, side rails up x2, call light is within reach.
[2020-07-18 08:00] VITALS: BP 113/82
[2020-07-18] MEDS: Heparin 5000 units/ml inj SUBQ SCH (08:45)
--- NOTE | 2020-07-18 10:30 | NUR ---
NURSE NOTES: Patient reporting constipation and back pain, Dr. Warren contacted. Orders received and carried out
--- NOTE | 2020-07-18 11:58 | Infectious Diseases Prog Note ---
Assessment/Plan Assessment/Plan antibiotics : none A 1. providencia UTI s/p rx 2. renal failure improving 3. hypertension 4. prostate cancer 5. dementia P 1. continue off antibiotics 2. will follow up cultures Subjective ROS Limited/Unobtainable: Yes Allergies: Coded Allergies: No Known Allergies (Unverified , 07/13/20) Objective Last 24 Hour Vital Signs Date Time Temp Pulse Resp B/P (MAP) Pulse Ox O2 Delivery O2 Flow Rate FiO2 07/18/20 09:00 Room Air 07/18/20 08:39 95 113/82 07/18/20 08:38 95 113/82 07/18/20 08:00 97.8 95 18 113/82 (92) 97 07/18/20 04:00 99.2 71 20 141/61 (87) 96 07/18/20 04:00 83 07/18/20 00:00 62 07/18/20 00:00 99.1 67 20 122/58 (79) 99 07/17/20 21:13 77 129/72 07/17/20 21:00 Room Air 07/17/20 20:00 98.3 94 20 129/72 (91) 97 07/17/20 20:00 77 07/17/20 18:00 87 82/49 07/17/20 16:00 79 07/17/20 16:00 96.6 19 102/67 (79) 98 07/17/20 12:00 50 07/17/20 12:00 98.2 95 22 121/79 (93) 95 Height (Feet): 6 Height (Inches): 0.00 Weight (Pounds): 168 Respiratory/Chest: lungs clear Cardiovascular: normal rate, regular rhythm, no gallop/murmur Abdomen: soft, non tender Extremities: no edema Laboratory Tests Test 07/17/20 13:20 07/18/20 04:08 Troponin I 0.047 ng/mL (0.000-0.056) White Blood Count 5.5 K/UL (4.8-10.8) Red Blood Count 3.64 M/UL (4.70-6.10) L Hemoglobin 10.2 G/DL (14.2-18.0) L Hematocrit 30.1 % (42.0-52.0) L Mean Corpuscular Volume 83 FL (80-99) Mean Corpuscular Hemoglobin 28.1 PG (27.0-31.0) Mean Corpuscular Hemoglobin Concent 34.0 G/DL (32.0-36.0) Red Cell Distribution Width 16.4 % (11.6-14.8) H Platelet Count 120 K/UL (150-450) L Mean Platelet Volume 8.6 FL (6.5-10.1) Neutrophils (%) (Auto) 53.3 % (45.0-75.0) Lymphocytes (%) (Auto) 29.5 % (20.0-45.0) Monocytes (%) (Auto) 9.7 % (1.0-10.0) Eosinophils (%) (Auto) 6.6 % (0.0-3.0) H Basophils (%) (Auto) 0.9 % (0.0-2.0) Sodium Level 143 MMOL/L (136-145) Potassium Level 3.8 MMOL/L (3.5-5.1) Chloride Level 109 MMOL/L (98-107) H Carbon Dioxide Level 28 MMOL/L (21-32) Anion Gap 6 mmol/L (5-15) Blood Urea Nitrogen 16 mg/dL (7-18) Creatinine 2.6 MG/DL (0.55-1.30) H Estimat Glomerular Filtration Rate 23.6 mL/min (>60) Glucose Level 93 MG/DL (74-106) Calcium Level 8.9 MG/DL (8.5-10.1) Magnesium Level 1.7 MG/DL (1.8-2.4) L Total Bilirubin 0.5 MG/DL (0.2-1.0) Aspartate Amino Transf (AST/SGOT) 33 U/L (15-37) Alanine Aminotransferase (ALT/SGPT) 17 U/L (12-78) Alkaline Phosphatase 84 U/L (46-116) Total Protein 6.6 G/DL (6.4-8.2) Albumin 2.6 G/DL (3.4-5.0) L Globulin 4.0 g/dL Albumin/Globulin Ratio 0.6 (1.0-2.7) L Current Medications Medications (Trade) Dose Ordered Sig/Kaylin Route PRN Reason Start Time Stop Time Status Last Admin Dose Admin Amlodipine Besylate (Norvasc) 5 mg BID ORAL 07/15/20 10:00 08/14/20 09:59 07/18/20 08:38 Heparin Sodium (Porcine) (Heparin 5000 units/ml) 5,000 units EVERY 12 HOURS SUBQ 07/13/20 21:00 08/27/20 20:59 07/18/20 08:45 Metoprolol Tartrate (Lopressor) 25 mg Q12HR ORAL 07/16/20 09:00 10/14/20 08:59 07/18/20 08:39 Pantoprazole (Protonix) 40 mg DAILY ORAL 07/14/20 09:00 08/13/20 08:59 07/18/20 08:38 Caity Blackburn MD Jul 18, 2020 11:58
--- NOTE | 2020-07-18 11:59 | NUR ---
[employer] OFFICER NOTE S/W [facility] [phone]. PATIENT HAS BEEN ACCEPTED PENDING STATUS OF BED AVAILABILITY. [facility] WILL FOLLOW UP WITH THIS CM ON TRANSFER STATUS.
[2020-07-18 12:00] VITALS: BP 121/57
--- NOTE | 2020-07-18 12:20 | NUR ---
DISCHARGE PLAN CALL RECEIVED FROM [facility]. [facility] CONFIRMED PATIENT ACCEPTED AND BED INFORMATION PROVIDED FOLLOWS: 3 JAMAR POD A-5 [id number] FOR NURSE REPORT FOR CALL TO BE TRANSFERRED, INDICATE: 3 JAMAR CHARGE NURSE [facility] [address] [place] [address] CLINICALS AND IMAGING ON DISC TO BE SENT WITH PATIENT AT TIME OF TRANSFER
[2020-07-18] MEDS ORDERED: Bisacodyl EC 5mg tab ORAL PRN (15:15)
[2020-07-18] MEDS ORDERED: Milk of Magnesia 30ml Ud ORAL PRN (15:15)
--- NOTE | 2020-07-18 15:30 | NUR ---
NURSE NOTES: Patient transferred to [facility] via [facility]. Belongings list signed and verified, patient information packet provided, questions answered. Patient's family contacted and made aware of transfer. IV and ID wristband removed.
[2020-07-18] MEDS ORDERED: Docusate 250mg cap ORAL SCH (18:00)
--- NOTE | 2020-07-18 22:02 | Cardiology Progress Note ---
Subjective DATE OF SERVICE: Jul 18, 2020 More alert No SOB. Stable BP parameters. Venous Duplex: negative for DVT Objective Last 24 Hour Vital Signs Date Time Temp Pulse Resp B/P (MAP) Pulse Ox O2 Delivery O2 Flow Rate FiO2 07/18/20 12:00 98.0 71 18 121/57 (78) 99 07/18/20 09:00 Room Air 07/18/20 08:39 95 113/82 07/18/20 08:38 95 113/82 07/18/20 08:00 97.8 95 18 113/82 (92) 97 07/18/20 04:00 99.2 71 20 141/61 (87) 96 07/18/20 04:00 83 07/18/20 00:00 62 07/18/20 00:00 99.1 67 20 122/58 (79) 99 ROS: unchanged from my initial evaluation HEENT: normal ENT inspection LUNGS: diminished breath sounds CARDIAC: regular rhythm, normal S1 and S2, tachycardia ABDOMEN: normal bowel sounds, non tender, soft, no organomegaly EXTREMITIES: normal range of motion, No edema, other - Neuro: uncooperative, but moves all extremities. no asterixis Laboratory Tests Test 07/18/20 04:08 White Blood Count 5.5 K/UL (4.8-10.8) Red Blood Count 3.64 M/UL (4.70-6.10) L Hemoglobin 10.2 G/DL (14.2-18.0) L Hematocrit 30.1 % (42.0-52.0) L Mean Corpuscular Volume 83 FL (80-99) Mean Corpuscular Hemoglobin 28.1 PG (27.0-31.0) Mean Corpuscular Hemoglobin Concent 34.0 G/DL (32.0-36.0) Red Cell Distribution Width 16.4 % (11.6-14.8) H Platelet Count 120 K/UL (150-450) L Mean Platelet Volume 8.6 FL (6.5-10.1) Neutrophils (%) (Auto) 53.3 % (45.0-75.0) Lymphocytes (%) (Auto) 29.5 % (20.0-45.0) Monocytes (%) (Auto) 9.7 % (1.0-10.0) Eosinophils (%) (Auto) 6.6 % (0.0-3.0) H Basophils (%) (Auto) 0.9 % (0.0-2.0) Sodium Level 143 MMOL/L (136-145) Potassium Level 3.8 MMOL/L (3.5-5.1) Chloride Level 109 MMOL/L (98-107) H Carbon Dioxide Level 28 MMOL/L (21-32) Anion Gap 6 mmol/L (5-15) Blood Urea Nitrogen 16 mg/dL (7-18) Creatinine 2.6 MG/DL (0.55-1.30) H Estimat Glomerular Filtration Rate 23.6 mL/min (>60) Glucose Level 93 MG/DL (74-106) Calcium Level 8.9 MG/DL (8.5-10.1) Magnesium Level 1.7 MG/DL (1.8-2.4) L Total Bilirubin 0.5 MG/DL (0.2-1.0) Aspartate Amino Transf (AST/SGOT) 33 U/L (15-37) Alanine Aminotransferase (ALT/SGPT) 17 U/L (12-78) Alkaline Phosphatase 84 U/L (46-116) Total Protein 6.6 G/DL (6.4-8.2) Albumin 2.6 G/DL (3.4-5.0) L Globulin 4.0 g/dL Albumin/Globulin Ratio 0.6 (1.0-2.7) L Assessment/Plan Assessment/Plan Toxic and metabolic encephalopathies Proteus UTI with sepsis Sinus tachycardia Hypovolemia/dehydration with transient shock Hypertension/HHD with labile BP Chronic diastolic CHF Euthyroid Acute myocardial ischemia/ACS - recovering with hydration Low range lipid parameters on high dose statin as outpatient encourage oral intake DVT prophyl Titrate antiHTN regimen Resume low dose statin upon discharge Continue beta nikkie and aspirin PT/OT Troy Feliz MD Jul 18, 2020 22:02
--- NOTE | 2020-07-20 11:02 | Discharge Summary ---
Discharge Summary Discharge Summary _ DATE OF ADMISSION: 07/13/2020 DATE OF DISCHARGE: 07/18/2020 DISCHARGED BY: Dr. Warren REASON FOR ADMISSION: 84 years old male with past medical history of hypertension, CVA, dementia, prostate cancer, presented for evaluation due to generalized weakness and confusion. Laboratory work-up revealed no leukocytosis ,hemoglobin 11.1, hematocrit 24.2 . BUN 22, creatinine 2.9. Urinalysis revealed pyuria and moderate bacteria Serum alcohol was less than 3. CT of the head revealed no acute intracranial pathology , chronic age-related changes noted. Troponin negative , EKG revealed sinus rhythm no acute ischemic changes. Ammonia level 10 . Glucose 103 Patient admitted with UTI , altered mental status, encephalopathy and renal insufficiency. CONSULTANTS: pipe line inspector ID specialist Dr. Blackburn HOSPITAL COURSE: Patient admitted to medical surgical floor and started on IV fluids and empiric antibiotic. Urine culture revealed Providencia. Rapid COVID-19 was negative. Antibiotic optimized as per ID recommendation. Episodes of fevers resolved. No leukocytosis. Patient completed treatment with antibiotic in the hospital. Venous duplex bilateral lower extremity revealed no evidence of acute DVT. DVT prophylaxis provided. Pulse oximetry remained stable on room air. Chest x-ray revealed no acute cardiopulmonary pathology. Renal parameters and electrolytes were closely monitored, electrolytes corrected as needed, and nephrotoxic's were avoided. Creatinine trended down from initial 2.9 down to 2.6 upon discharge. Oral intake was encouraged. Antihypertensive regimen titrated as per cardiolgost. Beta-nikkie and antiplatelet therapy with aspirin continued. Fall precaution maintained. Patient was working with physical therapy. Supportive care provided. Bowel regimen instituted. Hemoglobin and hematocrit were closely monitored with goal to keep hemoglobin above 7; remained at baseline : prior to discharge hemoglobin 10.2 , hematocrit 30.1 Transfer was arranged to [facility] as per his insurance; patient was stable for transfer. FINAL DIAGNOSES: Providencia UTI, s/p treatment Acute toxic metabolic encephalopathy Altered mental status Prostate cancer Renal insufficiency Hypertension/hypertensive heart disease with labile blood pressure Chronic diastolic CHF Hypovolemia/dehydration Dementia DISCHARGE MEDICATIONS: See Medication Reconciliation list. DISCHARGE INSTRUCTIONS: Patient was transferred to [facility] as per his insurance. I have been assigned to dictate discharge summary for this account. I was not involved in the patient's management. Sharon Fontana NP Jul 20, 2020 11:02
== END 2020-07-18 16:00 | DRG 871 ==
LOC: EDBD 11:08 → EMR 12:19 → 2E 13:16 → EDBEDREQ 18:42 → 3E 07-18 06:46
DX: A41.9 Sepsis, unspecified organism (principal); G92 Toxic encephalopathy; N39.0 Urinary tract infection, site not specified; I13.0 Hypertensive heart and chronic kidney disease with heart failure and stage 1 through stage 4 chronic kidney disease, or unspecified chronic kidney disease; I50.32 Chronic diastolic (congestive) heart failure; Z85.46 Personal history of malignant neoplasm of prostate; M10.9 Gout, unspecified; N18.9 Chronic kidney disease, unspecified; E86.0 Dehydration; I25.9 Chronic ischemic heart disease, unspecified; F03.90 Unspecified dementia, unspecified severity, without behavioral disturbance, psychotic disturbance, mood disturbance, and anxiety
CPT/HCPCS: 36415; 70450; 71045; 80053; 80061; 81001; 82140; 82550; 82607; 82746; 83735; 83880; 84443; 84484; 84550; 85025; 85610; 85730; 87086; 87181; 93005; 93970; 96365; 96367; 99285; G0480; U0002